=== PATIENT | female | born 1935 | race Two or more races ===

== ENCOUNTER 2023-06-29 09:42 | Inpatient (IN) | payer OTHER, MEDICAID ==
[~2023-06-29] VITALS: Ht 152.4 cm; Wt 81.2 kg
[2023-06-29 10:05] VITALS: PULSE 157; RESP 18; O2SAT 96
[2023-06-29 10:13] LABS: Basophils # (auto) 0 10 ^3/uL (0-0.2); Basophils % (auto) 0.5 % (0.0-2.0); Eosinophils # (auto) 0.2 10 ^3/uL (0-0.8); Eosinophils % (auto) 3.2 % (0.0-7.0); Hematocrit 42.9 % (36.0-46.0); Hemoglobin 13.9 g/dL (12.2-16.2); Lymphocytes # (auto) 1.5 10 ^3/uL (0.4-5.4); Lymphocytes % (auto) 27.6 % (10.0-50.0); Mean Corpuscular Hemoglobin 30.2 pg (28.0-32.0); Mean Corpuscular Hgb Conc. 32.5 g/dL (32.0-36.0); Monocytes # (auto) 0.5 10 ^3/uL (0-1.3); Monocytes % (auto) 10.1 % (0.0-12.0); Neutrophils # (auto) 3.1 10 ^3/uL (1.6-8.6); Neutrophils % (auto) 58.6 % (37.0-80.0); Nucleated Red Blood Cells % 0.2 %; Red Blood Cells 4.62 10^6/uL (4.0-5.20); Red Cell Distribution Width 14.3 % (11.8-14.3); White Blood Cell 5.4 10^3/uL (4.4-10.8)
[2023-06-29] MEDS: dilTIAZem 25 MG/5 ML VIAL IV ONE (10:22)
[2023-06-29 10:27] LABS: Alanine Aminotransferase 23 U/L (7-40); Albumin 4.1 g/dL (3.2-4.8); Alkaline Phosphatase 56 U/L (46-116); Anion Gap 9 (5-15); Aspartate Aminotransferase 29 U/L (13-40); BUN/Creatinine Ratio 20.6 (10.0-20.0); Blood Urea Nitrogen 14 mg/dL (9-23); Calcium 9.6 mg/dL (8.5-10.1); Carbon Dioxide 25 mmol/L (20-30); Chloride 108 mmol/L (98-107); Glucose 110 mg/dL (74-106); Potassium 4.1 mmol/L (3.5-5.1); Sodium 142 mmol/L (136-145)
[2023-06-29 10:28] LABS: Total Protein 7.2 g/dL (5.7-8.2)
[2023-06-29 10:34] LABS: INR 1.07 (0.9-1.15); Prothrombin Time 11.3 sec (9.3-11.8)
[2023-06-29 11:23] LABS: Magnesium 1.8 mg/dL (1.6-2.6)
[2023-06-29] MEDS ORDERED: DOCUSATE SOD 100 MG CAP PO PRN (13:45)
[2023-06-29] MEDS ORDERED: MORPHINE SULFATE INJ 2 MG/ml SYRG IV PRN ×2 (13:45)
[2023-06-29] MEDS ORDERED: HYDR200T36 PO (13:45)
[2023-06-29] MEDS ORDERED: LOSA-535 PO (13:45)
[2023-06-29] MEDS ORDERED: ACETAMINOPHEN 325 MG TAB PO PRN (13:45)
[2023-06-29] MEDS ORDERED: APIX2.5T PO (13:45)
[2023-06-29] MEDS ORDERED: PRE5T PO (13:45)
[2023-06-29] MEDS ORDERED: GABA-1250 PO (13:45)
[2023-06-29] MEDS ORDERED: METH2.5T62 PO (13:45)
[2023-06-29] MEDS ORDERED: ATOR10TA52 PO (13:45)
[2023-06-29] MEDS ORDERED: NITROGLYCERIN 0.4 MG SL TAB SL PRN (13:45)
[2023-06-29] MEDS ORDERED: ALEN70TA74 PO (13:45)
[2023-06-29] MEDS ORDERED: ONDANSETRON HCL 4 MG/2 ML VIAL IV PRN (13:45)
[2023-06-29] MEDS ORDERED: HYDROcodone-ACET 5/325MG TAB PO PRN (13:45)
[2023-06-29] MEDS ORDERED: METO25TA93 PO (13:45)
[2023-06-29 19:45] VITALS: PULSE 63; RESP 13; O2SAT 95
[2023-06-29 19:53] LABS: Urine WBC None Seen /hpf (0 - 5)
[2023-06-29 20:30] LABS: Urine Amorphous Crystal FEW /hpf (None Seen); Urine Bacteria FEW /hpf (None Seen); Urine Blood Negative /uL (Negative); Urine Clarity Clear (Clear); Urine Color Colorless (Yellow); Urine Protein, UAD Negative (Negative); Urine Specific Gravity 1.006 (1.001-1.035); Urine Urobilinogen Normal (Negative)
[2023-06-29] MEDS: ATORVASTATIN 20 MG TAB PO SCH (22:28)
[2023-06-29 23:03] VITALS: BP 148/62; PULSE 65; RESP 18; TEMP 98.2; O2SAT 100
[2023-06-30] VITALS (9 sets, daily range): BP systolic 106–151; BP diastolic 49–71; PULSE 55–83; RESP 16–20; TEMP 97.4–98.7; O2SAT 92–99
[2023-06-30] MEDS ORDERED: FOLI-119 PO (00:02)
[2023-06-30] MEDS ORDERED: CHOL1TAB30 PO (00:02)
[2023-06-30] MEDS ORDERED: OMEP1CAP70 PO (00:02)
[2023-06-30 06:51] LABS: Basophils # (auto) 0 10 ^3/uL (0-0.2); Basophils % (auto) 0.3 % (0.0-2.0); Eosinophils # (auto) 0.2 10 ^3/uL (0-0.8); Eosinophils % (auto) 3.2 % (0.0-7.0); Hematocrit 38.9 % (36.0-46.0); Hemoglobin 12.8 g/dL (12.2-16.2); Lymphocytes # (auto) 1.3 10 ^3/uL (0.4-5.4); Lymphocytes % (auto) 25.7 % (10.0-50.0); Mean Corpuscular Hemoglobin 30.7 pg (28.0-32.0); Mean Corpuscular Volume 93.1 fL (80.0-100.0); Monocytes # (auto) 0.6 10 ^3/uL (0-1.3); Monocytes % (auto) 11.6 % (0.0-12.0); Neutrophils # (auto) 3.1 10 ^3/uL (1.6-8.6); Neutrophils % (auto) 59.2 % (37.0-80.0); Nucleated Red Blood Cells % 0.2 %; Red Blood Cells 4.18 10^6/uL (4.0-5.20); Red Cell Distribution Width 14.7 % (11.8-14.3); White Blood Cell 5.2 10^3/uL (4.4-10.8)
[2023-06-30 07:33] LABS: Alanine Aminotransferase 21 U/L (7-40); Albumin 3.7 g/dL (3.2-4.8); Alkaline Phosphatase 54 U/L (46-116); Anion Gap 6 (5-15); Aspartate Aminotransferase 23 U/L (13-40); BUN/Creatinine Ratio 23.1 (10.0-20.0); Blood Urea Nitrogen 18 mg/dL (9-23); Calcium 9.1 mg/dL (8.5-10.1); Carbon Dioxide 28 mmol/L (20-30); Chloride 108 mmol/L (98-107); Cholesterol 137 mg/dL (< 200); Glucose 97 mg/dL (74-106); HDL Cholesterol 53 mg/dL (40-59); LDL Cholesterol 69 mg/dL (< 100); Potassium 4.2 mmol/L (3.5-5.1); Sodium 142 mmol/L (136-145); Triglycerides 83 mg/dL (< 150)
[2023-06-30 07:34] LABS: Bilirubin, Total 0.8 mg/dL (0.2-1.0); Total Protein 6.5 g/dL (5.7-8.2)
[2023-06-30] MEDS: ENOXAPARIN SOD 40 MG/0.4 ML SYRINGE SC SCH (09:52)
[2023-06-30] MEDS: hydrOXYchloroQUINE SULFATE 200 MG TAB PO SCH (09:52)
[2023-06-30] MEDS: GABAPENTIN 300 MG CAP PO SCH (09:52)
[2023-06-30] MEDS: predniSONE 5 MG TAB PO SCH (09:52)
[2023-06-30] MEDS: LOSARTAN POTASSIUM 50 MG TAB PO SCH (09:53)
[2023-06-30] MEDS: PANTOPRAZOLE 40 MG TAB PO SCH (09:53)
[2023-06-30] MEDS: METOPROLOL SUCCINATE XL 50 MG TAB PO SCH (09:54)
[2023-06-30] MEDS ORDERED: PATIENTS OWN MEDICATION (Atorvastatin Calcium 1 TAB) PO SCH (10:00)
[2023-06-30] MEDS ORDERED: PATIENTS OWN MEDICATION (Metoprolol Succinate (Metoprolol Succinate Er) 1 TAB) PO SCH (10:00)
[2023-06-30] MEDS ORDERED: PATIENTS OWN MEDICATION (Losartan Potassium 1 TAB) PO SCH (10:00)
[2023-06-30] MEDS: AMIODARONE HCL 200 MG TAB PO SCH (13:40)
[2023-06-30] MEDS: APIXABAN 2.5 MG TAB PO SCH (21:35)
[2023-07-01 05:00] VITALS: BP 149/70; PULSE 65; RESP 18; TEMP 97.8; O2SAT 97
[2023-07-01] MEDS: ARTIFICIAL TEARS 15ml EACHEYE PRN (06:57)
[2023-07-01 07:31] LABS: Chloride 107 mmol/L (98-107); Sodium 141 mmol/L (136-145)
[2023-07-01 07:32] LABS: Anion Gap 5 (5-15); Carbon Dioxide 29 mmol/L (20-30)
[2023-07-01 07:33] LABS: Calcium 8.6 mg/dL (8.5-10.1)
[2023-07-01 07:37] LABS: Glucose 110 mg/dL (74-106)
[2023-07-01 07:38] LABS: BUN/Creatinine Ratio 28.4 (10.0-20.0); Blood Urea Nitrogen 19 mg/dL (9-23); Magnesium 1.7 mg/dL (1.6-2.6)
[2023-07-01 08:00] VITALS: RESP 20
[2023-07-01 09:00] VITALS: BP 132/92; PULSE 68; RESP 14; TEMP 98; O2SAT 96
[2023-07-01] MEDS ORDERED: AMIO200T33 PO (12:19)
[2023-07-01 13:00] VITALS: BP 131/63; PULSE 61; RESP 14; TEMP 98.2; O2SAT 93
== END 2023-07-01 15:14 | disposition home or self-care (01) | DRG 310 ==
LOC: ER 09:42 → TELE 13:44 → TELE-WESTW 22:41
PROVIDERS: ADMIT Internal Medicine Geriatric Medicine; ATTEND Internal Medicine Geriatric Medicine
DX: I48.0 Paroxysmal atrial fibrillation (principal); M06.9 Rheumatoid arthritis, unspecified; G62.9 Polyneuropathy, unspecified; E66.9 Obesity, unspecified; I10 Essential (primary) hypertension; Z79.899 Other long term (current) drug therapy; Z68.35 Body mass index [BMI] 35.0-35.9, adult
CPT/HCPCS: 36415; 71045; 80048; 80053; 80061; 81001; 83036; 83735; 83880; 84443; 84484; 85025; 85610; 85730; 93005; 93306; 99291; G0378